=== PATIENT | male | born 1940 | race Caucasian/White ===

== ENCOUNTER → 2017-02-01 | Outpatient (REF) ==
[2017-02-01 18:58] LABS: PSA-TOTAL < 0.10 ng/mL (0-4)
== END ==
LOC: ZLAB.WCH 18:05
PROVIDERS: Internal Medicine
DX: Z01.89 Encounter for other specified special examinations (principal)
CPT/HCPCS: G0103

== ENCOUNTER → 2017-08-30 | Outpatient (REF) | LOC: ZLAB.WCH 18:34 | DX: Z01.89 Encounter for other specified special examinations (principal) | CPT/HCPCS: G0103 ==

== ENCOUNTER → 2017-10-12 | Outpatient (REF) | LOC: ZLAB.WCH 17:58 | DX: Z01.89 Encounter for other specified special examinations (principal) ==

== ENCOUNTER 2017-11-02 10:36 | Day surgery (SDC) | payer MEDICARE, BC ==
[~2017-11-02] VITALS: Ht 182.9 cm; Wt 98.6 kg
[2017-11-02] VITALS (8 sets, daily range): BP systolic 110–162; BP diastolic 72–93; PULSE 75–166; TEMP 97.2–97.5
[2017-11-02] MEDS ORDERED: ZYLOPRIM 100MG100 MG PO (12:06)
[2017-11-02] MEDS ORDERED: CARDURA4 MG PO (12:06)
[2017-11-02] MEDS ORDERED: MONOPRIL10 MG PO (12:07)
[2017-11-02] MEDS ORDERED: PRIL40 PO (12:08)
[2017-11-02] MEDS ORDERED: [UNRECOGNIZED DRUG - OTHER] PO (12:08)
[2017-11-02] MEDS ORDERED: FLONASE NASAL S16 GM NS (12:09)
[2017-11-02] MEDS ORDERED: ASPIRIN 81M81 MG/TA2 PO (12:10)
[2017-11-02] MEDS ORDERED: VITAMIN FLUSH-F1 CAP PO (12:10)
[2017-11-02] MEDS ORDERED: GLUCOSAMINE & C1 TE1 PO (12:11)
[2017-11-02] MEDS ORDERED: OMEGA-31 SGL PO (12:12)
[2017-11-02] MEDS ORDERED: ROXICODONE 55 MG/TAB PO (16:16)
== END 2017-11-02 17:30 | disposition home or self-care (01) ==
LOC: SDCO 10:36
DX: K40.20 Bilateral inguinal hernia, without obstruction or gangrene, not specified as recurrent (principal); K44.9 Diaphragmatic hernia without obstruction or gangrene; K31.89 Other diseases of stomach and duodenum; E66.9 Obesity, unspecified; Z79.82 Long term (current) use of aspirin; Z68.29 Body mass index [BMI] 29.0-29.9, adult; F41.9 Anxiety disorder, unspecified; E78.5 Hyperlipidemia, unspecified; I10 Essential (primary) hypertension; M10.9 Gout, unspecified; Z85.46 Personal history of malignant neoplasm of prostate; M48.02 Spinal stenosis, cervical region; M54.12 Radiculopathy, cervical region
CPT/HCPCS: A4314; C1781; J0330; J0690; J1100; J1885; J2405; J2704; J2710; J3010; J7120

== ENCOUNTER → 2018-01-13 | Outpatient (CLI) | payer MEDICARE, BC ==
[~2018-01-13] MED LIST: ASPIRIN 81M81 MG/TA2 PO; CARDURA4 MG PO; FLONASE NASAL S16 GM NS; GLUCOSAMINE & C1 TE1 PO; MONOPRIL10 MG PO; OMEGA-31 SGL PO; PRIL40 PO; ROXICODONE 55 MG/TAB PO; VITAMIN FLUSH-F1 CAP PO; ZYLOPRIM 100MG100 MG PO; [UNRECOGNIZED DRUG - OTHER] PO
== END ==
LOC: COL.RAD 10:44
DX: K44.9 Diaphragmatic hernia without obstruction or gangrene (principal); K21.9 Gastro-esophageal reflux disease without esophagitis

== ENCOUNTER 2018-02-16 08:19 | Day surgery (SDC) | payer MEDICARE, BC ==
[~2018-02-16] VITALS: Ht 182.9 cm; Wt 97.1 kg
[~2018-02-16 08:19] MED LIST changes: +MYRBETR50MG PO; -[UNRECOGNIZED DRUG - OTHER] PO
[2018-02-16 09:32] VITALS: BP 129/80; PULSE 73; TEMP 97.2
[2018-02-16 14:01] VITALS: BP 126/62; PULSE 86
[2018-02-16 14:15] VITALS: BP 102/65; PULSE 88
[2018-02-16 14:34] VITALS: BP 123/78; PULSE 82
[2018-02-16 19:07] VITALS: BP 150/87; PULSE 99; TEMP 97.7
[2018-02-17 01:04] VITALS: BP 140/80; PULSE 61; TEMP 97.4
[2018-02-17 04:15] VITALS: BP 141/74; PULSE 67; TEMP 97.6
[2018-02-17 08:18] VITALS: BP 135/65; PULSE 68; TEMP 98.6
[2018-02-17 11:45] VITALS: BP 141/83; PULSE 72; TEMP 98.3
[2018-02-17 16:59] VITALS: BP 137/77; PULSE 65; TEMP 98.2
== END 2018-02-17 18:30 | disposition home or self-care (01) ==
LOC: SDCO 08:19 → PEDS 13:51 → SDCO 02-17 18:30
DX: K21.9 Gastro-esophageal reflux disease without esophagitis (principal); K44.9 Diaphragmatic hernia without obstruction or gangrene; Z79.899 Other long term (current) drug therapy; Z79.82 Long term (current) use of aspirin; Z85.46 Personal history of malignant neoplasm of prostate; I10 Essential (primary) hypertension; M10.9 Gout, unspecified; Z82.3 Family history of stroke; Z82.49 Family history of ischemic heart disease and other diseases of the circulatory system
CPT/HCPCS: OP; C1713; C1781; J0330; J0690; J1100; J1170; J2405; J2704; J2710; J3010; J7120

== ENCOUNTER → 2018-02-25 | Outpatient (REF) ==
[2018-02-25 16:48] LABS: PSA-TOTAL < 0.10 ng/mL (0-4)
== END ==
LOC: ZLAB.WCH 15:57
PROVIDERS: Internal Medicine
DX: Z01.89 Encounter for other specified special examinations (principal)
CPT/HCPCS: G0103

== ENCOUNTER 2020-07-24 09:48 | Day surgery (SDC) | payer MEDICARE, BC ==
[~2020-07-24] VITALS: Ht 177.8 cm; Wt 94.3 kg
[~2020-07-24 09:48] MED LIST changes: +METAMUCIL MUL0.52 GM PO; +PROTONIX 40MG T40 MG PO
[2020-07-24 10:36] VITALS: BP 145/95; PULSE 79; TEMP 98
[2020-07-24] MEDS ORDERED: METAMUCIL3.4 GM/DOS PO (10:36)
[2020-07-24 12:46] VITALS: BP 101/61; PULSE 61; TEMP 97.5
--- NOTE | 2020-07-24 12:46 | NUR ---
The patient arrived back to [facility] from the operating room at this time. The patient appears alert and oriented and denies any pain or nausea at this time. Vital signs were started at this time. The patient has a dressing to his left foot that is covered with an chidi bandage that appears clean, dry and intact. The patient has a post op shoe in place to his left foot. The patient denies wanting anything to eat or drink at this time. Call light is within reach. Will continue to monitor the patient.
[2020-07-24 13:01] VITALS: BP 112/65; PULSE 56
--- NOTE | 2020-07-24 13:01 | NUR ---
The patient appears to be resting comfortbaly on the cart at this time. Vital signs appear stable. Call light is within reach. Will continue to monitor the patient.
[2020-07-24 13:16] VITALS: BP 127/72; PULSE 54
--- NOTE | 2020-07-24 13:16 | NUR ---
The patient appears more alert at this time and was given some grape juice to try. Vital signs appear stable. The patient denies any pain or nasuea at this time. Will continue to monitor the patient.
[2020-07-24 13:31] VITALS: BP 142/75; PULSE 66
--- NOTE | 2020-07-24 13:31 | NUR ---
The patient has finished his juice and appeared to tolerate the juice well. The patient ambulated to the bathroom with stand by assist and appeared to tolerate the activity well. The patient voided without difficulty and voices a desire to be discharged home.
[2020-07-24] MEDS ORDERED: PERCOCET 325 MG1 TA2 PO (13:58)
--- NOTE | 2020-07-24 14:01 | NUR ---
Discharge instructions were reviewed with the patient and his over the phone. He verbalized understanding and have no questions for the nurse at this time. The patient is dressed and ready to be escorted out. The patient's IV to his right hand was removed and a pressure dressing was applied to the site.
--- NOTE | 2020-07-24 14:15 | NUR ---
The patient was escorted out via wheelchair to a private vehicle by PAYTON Calle. The patient's belongings and discharge paperwork were sent with him. The patient's is present to drive him home.
== END 2020-07-24 14:15 | disposition home or self-care (01) ==
LOC: SDCO 09:48
DX: M20.12 Hallux valgus (acquired), left foot (principal); M21.612 Bunion of left foot; M20.42 Other hammer toe(s) (acquired), left foot; Z79.51 Long term (current) use of inhaled steroids; E78.2 Mixed hyperlipidemia; Z85.46 Personal history of malignant neoplasm of prostate; E66.9 Obesity, unspecified; M10.9 Gout, unspecified; F41.1 Generalized anxiety disorder; D64.9 Anemia, unspecified; Z20.828 Contact with and (suspected) exposure to other viral communicable diseases
CPT/HCPCS: J0690; J2250; J2405; J2704; J3010; J7120